=== PATIENT | male | born 1975 | race African-American/Black ===

== ENCOUNTER 2017-01-02 10:50 | Emergency (ER) | payer MEDICAID ==
[~2017-01-02] VITALS: Ht 180.3 cm; Wt 131.5 kg
[2017-01-02] MEDS ORDERED: KEFLEX500 MG ORAL (11:24)
[2017-01-02 11:54] VITALS: BP 143/103
[2017-01-02 11:55] VITALS: BP 143/103
--- NOTE | 2017-01-02 13:18 | Emergency Room Report ---
History of Present Illness General Chief Complaint: Eye Problems Source: Patient Present Illness HPI 41-year-old male presents ED complaining of right eye pain times one month. States there is a bump on his eyelid. Tingling. 6/10 pain. Worse at night. Denies any discharge. Denies any fevers or chills. Denies any change in visual acuity. No other aggravating relieving factors. Denies any other associated symptoms Allergies: Coded Allergies: No Known Allergies (Unverified , 01/02/17) Patient History Past Medical History: none Past Surgical History: none Pertinent Family History: none Social History: Denies: alcohol use, drug use, smoking Immunizations: UTD Reviewed Nursing Documentation: PMH: Agreed, PSxH: Agreed Nursing Documentation-PMH Past Medical History: No Stated History Review of Systems All Other Systems: negative except mentioned in HPI Physical Exam Vital Signs Date Time Temp Pulse Resp B/P Pulse Ox O2 Delivery O2 Flow Rate FiO2 01/02/17 10:56 97.9 106 16 143/103 98 Room Air Sp02 EP Interpretation: reviewed, normal General Appearance: no apparent distress, alert, GCS 15, non-toxic Head: normocephalic Eyes: right eye other - stye R upper eyelid, bilateral eye EOMI, bilateral eye PERRL, bilateral eye normal inspection, bilateral eye visual acuity ENT: normal ENT inspection Neck: normal inspection Respiratory: normal inspection Cardiovascular #1: normal inspection Gastrointestinal: normal inspection Rectal: deferred Genitourinary: no CVA tenderness Musculoskeletal: normal inspection Neurologic: alert, oriented x3, responsive, motor strength/tone normal, sensory intact, speech normal Psychiatric: judgement/insight normal, memory normal, mood/affect normal, no suicidal/homicidal ideation Skin: normal inspection Lymphatic: normal inspection Medical Decision Making Diagnostic Impression: Primary Impression: Stye Qualified Codes: H00.011 - Hordeolum externum right upper eyelid ER Course Hospital Course 41-year-old male presents to ED with right eye pain, feel something in his eye Differential diagnoses include: conjunctivitis, traumatic iritis, foreign body, corneal abrasion Clinical course Patient placed on stretcher. After initial history physical exam reveals a obese male in no acute distress. There is swelling to the right upper eyelid. No discharge. No fluctuance. Ocular exam otherwise unremarkable. Consistent with a stye reassurance given. We will treat with warm compresses and antibiotics Diagnosis - stye Stable and discharged to home with prescription for Keflex. Followup with PMD/ Optho. Return to ED if symptoms recur or worsen Last Vital Signs Date Time Temp Pulse Resp B/P Pulse Ox O2 Delivery O2 Flow Rate FiO2 01/02/17 11:55 97.9 16 143/103 98 Room Air 01/02/17 10:56 106 Status: improved Disposition: HOME, SELF-CARE Condition: Stable Scripts Cephalexin* (KEFLEX*) 500 Mg Capsule 500 MG ORAL Q6H, #28 CAP 0 Refills Prov: NATHALIE ZAPIEN M.D. 01/02/17 Patient Instructions: NATHALIE Lay M.D. Jan 02, 2017 13:18
== END 2017-01-02 11:57 | disposition home or self-care (01) ==
LOC: EMR 11:10
DX: H00.011 Hordeolum externum right upper eyelid (principal)
CPT/HCPCS: 99283